=== PATIENT | female | born 1985 | race Two or more races ===

== ENCOUNTER 2020-02-12 14:25 | Outpatient (REF) | payer OTHER, SELFPAY ==
[2020-02-13 09:45] LABS: Syphilis Screen Reactive (Nonreactive)
[2020-02-13 10:00] LABS: HIV AB/AG Nonreactive (Nonreactive); HIV Num 1 0.07 S/CO (0.00-0.99); Hepatitis B Surface Antigen Negative (Negative)
[2020-02-13 11:38] LABS: CT PCR NOT DETECTED (Not Detect.); NG PCR NOT DETECTED (Not Detect.)
[2020-02-13 15:03] LABS: BV Int Neg Control Negative (Negative); BV Int Pos Control Positive (Positive)
[2020-02-17 15:04] LABS: RPR Quantitative Non-Reactive (Nonreactive)
[2020-02-27 12:50] LABS: T.Pallidum Particle Agg Test Reactive (Nonreactive)
== END 2020-02-12 14:26 | disposition home or self-care (01) ==
LOC: HO.LAB 14:25
PROVIDERS: PCP Internal Medicine; Referring Provider Internal Medicine; Visit Provider Obstetrics & Gynecology
DX: N89.8 Other specified noninflammatory disorders of vagina (principal); Z11.3 Encounter for screening for infections with a predominantly sexual mode of transmission
CPT/HCPCS: 86592; 86780; 87340; 87389; 87480; 87491; 87510; 87591; 87660; 99213

== ENCOUNTER 2020-04-24 08:00 | Outpatient (REF) | payer OTHER, SELFPAY ==
[2020-04-25 12:53] LABS: BV Int Neg Control Negative (Negative); BV Int Pos Control Positive (Positive)
[2020-04-27 08:12] LABS: C. trachomatis RNA TMA NOT DETECTED (NOT DETECTED); N. gonorrhoeae RNA TMA NOT DETECTED (NOT DETECTED)
== END 2020-04-24 08:01 | disposition home or self-care (01) ==
LOC: HO.LAB 08:00
PROVIDERS: PCP Internal Medicine Endocrinology, Diabetes & Metabolism; Visit Provider Advanced Practice Midwife
DX: N89.8 Other specified noninflammatory disorders of vagina (principal); Z20.2 Contact with and (suspected) exposure to infections with a predominantly sexual mode of transmission
CPT/HCPCS: 87480; 87491; 87510; 87591; 87660; 99212

== ENCOUNTER → 2020-05-12 11:54 | Outpatient (BNVA) | payer OTHER, SELFPAY | PROVIDERS: PCP Internal Medicine Endocrinology, Diabetes & Metabolism; Visit Provider Advanced Practice Midwife | DX: N76.0 Acute vaginitis (principal); B96.89 Other specified bacterial agents as the cause of diseases classified elsewhere; Z71.2 Person consulting for explanation of examination or test findings | CPT/HCPCS: 99212 ==

== ENCOUNTER → 2020-05-20 08:06 | Outpatient (BNVA) | payer OTHER, SELFPAY | PROVIDERS: PCP Internal Medicine; Visit Provider Advanced Practice Midwife ==

== ENCOUNTER 2020-12-17 07:52 | Emergency (ER) | payer OTHER, SELFPAY ==
[2020-12-17 07:57] VITALS: BP 101/46; PULSE 75; RESP 18; TEMP 36.9; O2SAT 98; BMI 25.4
--- NOTE | 2020-12-17 08:00 | ED.EAR ---
HPI - Ear Problem General Chief complaint: Ear Problems Stated complaint: hearing loss lt ear Time Seen by Provider: 12/17/20 08:00 Source: patient Mode of arrival: ambulatory Limitations: no limitations History of Present Illness HPI Narrative: 35-year-old female came in for evaluation of hearing loss in the left ear that is gradually getting worse, patient had a complete hearing loss since yesterday. No fever, no chills. Related Data Home Medications Medication Instructions Recorded Confirmed levothyroxine 125 mcg tablet 125 mcg PO DAILY 02/12/20 Previous Rx's Medication Instructions Recorded clindamycin HCl 300 mg capsule 300 mg PO BID 7 Days #14 cap 05/20/20 Allergies Allergy/AdvReac Type Severity Reaction Status Date / Time metronidazole [From FLAGYL] Allergy Severe SHORTNESS Verified 05/20/20 08:19 OF BREATH ibuprofen [From MOTRIN] Allergy Intermediate VOMITING Verified 05/20/20 08:19 Review of Systems Review of Systems: All other systems are reviewed and are negative Constitutional: Reports as per HPI and Reports no additional constitutional complaints Eyes: Reports as per HPI and Reports no additional eye complaints Reports system reviewed and no additional complaints, except as documented Cardiovascular: Reports as per HPI and Reports no additional cardiovascular complaints Respiratory: Reports as per HPI and Reports no additional respiratory complaints Gastrointestinal: Reports as per HPI and Reports no additional gastrointestinal complaints Genitourinary: Reports no additional female genitourinary complaints Musculoskeletal: Reports no additional musculoskeletal complaints Skin/Breast: Reports system reviewed and no additional complaints, except as docu Psychiatric: Reports no additional psychiatric complaints Endocrine: Reports no additional endocrine complaints Hematologic/Lymphatic: Reports no additional hematologic/lymphatic complaints Allergic/Immunologic: Reports no additional allergic/immunologic complaints Reports system reviewed and no additional complaints, except as documented and Reports Abnormal speech present [facility] Past Medical History Medical History History of Graves' disease Hx of thyroid irradiation Family History Family History Paternal Grandmother Diabetes Social History Social History Alcohol intake: never Advance Directives: Yes Advance Directives Information Provided: Yes Advance Directives on File: No Patient : No Sexual orientation: Straight/Heterosexual Gender identity: Female Physical Exam Vital Signs: Vital Signs: Last Vital Signs Temp 98.4 F 12/17/20 07:57 Pulse 75 12/17/20 07:57 Resp 18 12/17/20 07:57 BP 101/46 L 12/17/20 07:57 Pulse Ox 98 12/17/20 07:57 Body Mass Index 25.4 Vital signs have been reviewed as appeared to be correct. Blood pressure normal. Heart rate normal. Respiration rate normal. Temperature normal. Oxygen saturation normal. Appearance: Alert. Oriented X3. No acute distress. Head: Normal external exam. Normocephalic. Atraumatic. No Serrano signs noted. No raccoon eyes noted Eyes: PERRLA. EOMI. Conjunctiva and sclera normal. Eyelids normal. ENT: TM's Normal on the right side, complete blockage of the auditory canal with cerumen, Pharynx normal. Uvula midline. Moist mucous membranes. No trismus noted. No drooling noted. No muffled voice noted. Neck: Normal inspection. Neck supple. FROM. No adenopathy. Thyroid Normal. No meningeal signs. No neck mass noted. CVS: Normal heart rate and rhythm. Heart sound normal. No murmurs noted. Pulses normal throughout. Respiratory: No respiratory distress. Painless inspiration. Breath sounds normal. No wheezes/rales/rhonchi noted. Chest nontender. No accessory muscle usage noted or decreased air movement noted. Abdomen: Soft and nontender. Bowel sounds normal in all 4 quadrants. No distention noted. No organomegaly noted. No visible injury noted. Back: No CVA tenderness. Full range of motion noted. Skin: Skin warm and dry. Normal skin color. Normal skin turgor. No rashes/lesions/lacerations noted. Extremities: No lower extremity edema. Extremities exhibit normal range of motion. Extremities nontender. Neuro: Oriented X 3. Cranial nerve exam: II-XII are grossly intact No motor deficit. No sensory deficit. Reflexes normal. Course Course Course Narrative: Assessment and plan. Cerumen impaction, status post disimpaction, patient now can hear better. Procedures Ear Wax Removal Left Ear: Cerumenolytic Used: other (ns) Results: Re-examined: cerumen removed completely TM Examination: TM(s) intact, normal appearance Ear Canal Exam: atraumatic Patient Tolerated Procedure: well Complications: no problems Technique: ear canal irrigated Discharge Plan Discharge Clinical Impression: Cerumen impaction Qualifiers: Laterality: left Qualified Code(s): H61.22 - Impacted cerumen, left ear Patient Disposition: Home, Self-Care Prescriptions: No Action clindamycin HCl 300 mg capsule 300 mg PO BID 7 Days Qty: 14 RF: 0 levothyroxine 125 mcg tablet 125 mcg PO DAILY RF: 0 Referrals: Akhil Ortiz MD [Primary Care Provider] - 2 days
[2020-12-17 08:20] VITALS: BP 102/61
== END 2020-12-17 08:27 | disposition home or self-care (01) ==
LOC: HO.ED 08:07
PROVIDERS: Emergency Provider Emergency Medicine; PCP Internal Medicine
DX: H61.22 Impacted cerumen, left ear (principal); H92.02 Otalgia, left ear; Z79.899 Other long term (current) drug therapy
CPT/HCPCS: 69209; 99282; 99284; 99285

== ENCOUNTER 2021-02-18 13:27 | Outpatient (REF) | payer OTHER, SELFPAY ==
[2021-02-19 01:18] LABS: CT PCR NOT DETECTED (Not Detect.); NG PCR NOT DETECTED (Not Detect.)
[2021-02-19 09:30] LABS: BV Int Neg Control Negative (Negative); BV Int Pos Control Positive (Positive)
[2021-02-20 15:01] LABS: HPV mRNA E6/E7 rflx Not Detected (Not Detected)
== END 2021-02-18 13:28 | disposition home or self-care (01) ==
LOC: HO.LAB 13:27
PROVIDERS: PCP Internal Medicine; Visit Provider Advanced Practice Midwife
DX: Z01.419 Encounter for gynecological examination (general) (routine) without abnormal findings (principal); Z11.51 Encounter for screening for human papillomavirus (HPV); Z11.3 Encounter for screening for infections with a predominantly sexual mode of transmission; R10.2 Pelvic and perineal pain; N89.8 Other specified noninflammatory disorders of vagina; Z20.2 Contact with and (suspected) exposure to infections with a predominantly sexual mode of transmission
CPT/HCPCS: 87480; 87491; 87510; 87591; 87624; 87660; 88142

== ENCOUNTER 2021-09-23 13:33 | Outpatient (REF) | payer OTHER, SELFPAY ==
[2021-09-23 17:07] LABS: CT PCR NOT DETECTED (Not Detect.); NG PCR NOT DETECTED (Not Detect.)
[2021-09-24 11:03] LABS: BV Int Neg Control Negative (Negative); BV Int Pos Control Positive (Positive)
== END 2021-09-23 13:34 | disposition home or self-care (01) ==
LOC: HO.LAB 13:33
PROVIDERS: Visit Provider Advanced Practice Midwife
DX: N89.8 Other specified noninflammatory disorders of vagina (principal); Z20.2 Contact with and (suspected) exposure to infections with a predominantly sexual mode of transmission
CPT/HCPCS: 87480; 87491; 87510; 87591; 87660; 99212

== ENCOUNTER 2021-11-25 10:48 | Outpatient (REF) | payer OTHER, SELFPAY ==
[2021-11-25 19:47] LABS: CT PCR NOT DETECTED (Not Detect.); NG PCR NOT DETECTED (Not Detect.)
[2021-11-26 09:20] LABS: BV Int Neg Control Negative (Negative); BV Int Pos Control Positive (Positive)
== END 2021-11-25 10:49 | disposition home or self-care (01) ==
LOC: HO.LAB 10:48
PROVIDERS: Visit Provider Advanced Practice Midwife
DX: O03.9 Complete or unspecified spontaneous abortion without complication (principal); N89.8 Other specified noninflammatory disorders of vagina; Z20.2 Contact with and (suspected) exposure to infections with a predominantly sexual mode of transmission
CPT/HCPCS: 81025; 87086; 87480; 87491; 87510; 87591; 87660; 99212

== ENCOUNTER 2021-11-26 11:06 | Outpatient (REF) | payer OTHER, SELFPAY ==
--- NOTE | ~2021-11-26 | US_ITS ---
EXAMINATION: US PELVIS CLINICAL INFORMATION: Right-sided pelvic pain for 2 weeks. COMPARISON: Pelvic ultrasound from 06/26/2016 TECHNIQUE: Ultrasound of the pelvis is performed using a transabdominal transducer. The patient declined transvaginal evaluation. FINDINGS: UTERUS AND CERVIX The anteflexed, anteverted uterus measures 8.9 x 3.8 x 5 cm ([id number] x AP x transverse dimension). The myometrial echotexture is normal. No evidence of leiomyoma. The cervix is approximately 3 cm in length. The endometrium has normal echotexture, measures 1 cm AP. ADNEXA: The ovaries have normal size and echotexture. No adnexal mass. The right ovary is 2 x 1.8 x 2.4 cm, volume of 4.5 mL. The left ovary is 2.4 x 3.2 x 2.1 cm, volume of 8.4 mL. FREE FLUID: None detected. US/US pelvic complete IMPRESSION: Normal ultrasound examination of the uterus and ovaries. No evidence of ovarian mass or pelvic free fluid.
== END 2021-11-26 11:07 | disposition home or self-care (01) ==
LOC: HO.US 11:06
PROVIDERS: Visit Provider Advanced Practice Midwife
DX: O03.9 Complete or unspecified spontaneous abortion without complication (principal)
CPT/HCPCS: 76856

== ENCOUNTER 2022-08-31 09:23 | Outpatient (REF) | payer OTHER, SELFPAY ==
[2022-08-31 12:59] LABS: HCG Quantitative < 2 mIU/mL
[2022-08-31 14:50] LABS: CT PCR NOT DETECTED (Not Detect.); NG PCR DETECTED (Not Detect.)
[2022-09-01 04:26] LABS: Syphilis Screen Reactive (Nonreactive)
[2022-09-01 04:31] LABS: HBsAGNum1 0.28 S/CO (0.00-0.99); HIV AB/AG Nonreactive (Nonreactive); HIV Num 1 0.05 S/CO (0.00-0.99); Hepatitis B Surface Antigen Negative (Negative); ~HepC Num1 0.11 S/CO (0.00-0.79); ~Hepatitis C Antibody Nonreactive (Nonreactive)
[2022-09-01 12:35] LABS: BV Int Neg Control Negative (Negative)
[2022-09-01 12:36] LABS: BV Int Pos Control Positive (Positive)
[2022-09-06 15:22] LABS: T.Pallidum Particle Agg Test Reactive (Nonreactive)
[2022-09-06 15:23] LABS: RPR Quantitative Non-Reactive (Nonreactive)
== END 2022-08-31 09:24 | disposition home or self-care (01) ==
LOC: HO.LAB 09:23
PROVIDERS: PCP Internal Medicine; Visit Provider Advanced Practice Midwife
DX: Z11.4 Encounter for screening for human immunodeficiency virus [HIV] (principal); Z20.2 Contact with and (suspected) exposure to infections with a predominantly sexual mode of transmission; N89.8 Other specified noninflammatory disorders of vagina; N94.9 Unspecified condition associated with female genital organs and menstrual cycle
CPT/HCPCS: 0353U; 36415; 84702; 86592; 86780; 86803; 87086; 87340; 87389; 87480; 87510; 87660; 99212

== ENCOUNTER 2022-08-31 10:47 | Outpatient (REF) | payer OTHER, SELFPAY ==
[2022-09-01 23:33] LABS: HPV mRNA E6/E7 rflx Not Detected (Not Detected)
== END 2022-08-31 10:48 | disposition home or self-care (01) ==
LOC: HO.LNP 10:47
PROVIDERS: Visit Provider Advanced Practice Midwife
DX: Z12.4 Encounter for screening for malignant neoplasm of cervix (principal); Z11.51 Encounter for screening for human papillomavirus (HPV); N89.8 Other specified noninflammatory disorders of vagina; Z87.42 Personal history of other diseases of the female genital tract
CPT/HCPCS: 87624; 88142

== ENCOUNTER → 2022-09-01 12:38 | Outpatient (BNVA) | payer OTHER, SELFPAY | PROVIDERS: PCP Internal Medicine; Visit Provider Advanced Practice Midwife | DX: A54.9 Gonococcal infection, unspecified (principal) | CPT/HCPCS: 96372; 99211; J0696 ==

== ENCOUNTER 2022-09-11 22:28 | Emergency (ER) | payer OTHER, SELFPAY ==
[2022-09-11 22:34] VITALS: BP 116/65; PULSE 104; RESP 18; TEMP 36.3; O2SAT 96; BMI 26.4
[2022-09-11 23:02] LABS: Basophils Absolute Auto 0.1 X10*3/uL (0.0-0.2); Basophils Percent Auto 0.5 % (0-2); Eosinophils Absolute Auto 0.1 X10*3/uL (0.0-0.4); Eosinophils Percent Auto 0.4 % (0-4); Hematocrit 38.5 % (37.0-47.0); Hemoglobin 13.1 g/dl (12.0-16.0); Imm Gran Abs Auto 0.08 X10*3/uL (0.00-0.03); Imm Gran Pct Auto 0.5 % (0.0-0.4); Lymphocytes Absolute Auto 1.9 X10*3/uL (1.2-4.9); Lymphocytes Percent Auto 11.4 % (20-40); MANUAL DIFF FLAG NO; Mean Corpuscular Hemoglobin 28.1 pg (27.0-33.0); Mean Corpuscular Volume 82.4 fL (80.0-98.0); Mean Platelet Volume 9.9 fL (9.4-12.3); Monocytes Absolute Auto 0.6 X10*3/uL (0.1-1.2); Monocytes Percent Auto 3.8 % (2-11); Neutrophils Absolute Auto 13.9 x10*3/uL (2.0-8.3); Neutrophils Percent Auto 83.4 % (45-73); Platelet Count 316 X10*3/uL (160-400); Red Blood Count 4.67 X10*6/uL (4.20-5.50); Red Cell Distribution Width 13.2 % (11.0-16.0); White Blood Count 16.6 X10*3/uL (4.8-10.8)
[2022-09-11 23:14] LABS: Anion Gap 11 (12-20); Blood Urea Nitrogen 14 mg/dL (9-16); Calcium 9.7 mg/dL (8.4-10.2); Carbon Dioxide 25 mmol/L (22-29); Chloride 108 mmol/L (96-108); Creatinine Clr Calc Pharmacy 81.5; Estimated Glomerular Filt Rate > 60; Glucose Random 113 mg/dL (60-115); Potassium 4.2 mmol/L (3.3-5.1); Sodium 140 mmol/L (135-145)
--- NOTE | 2022-09-12 00:29 | PC.NURSE ---
Pt brought back from waiting room, pt is tearful on stretcher recounting to this RN what happened. Pt reports having consistent pain in joints as well as painful urination. Pt provided us with CTNG awaiting clean catch at this time
--- NOTE | 2022-09-12 00:30 | ED_ITS ---
HPI - General Adult General Chief complaint: General Medical Stated complaint: Joint pain Time Seen by Provider: 09/12/22 00:29 Source: patient, RN notes reviewed and old records reviewed Mode of arrival: ambulatory Limitations: no limitations History of Present Illness HPI narrative: 36-year-old female presents for evaluation after a gonorrhea exposure. Patient was initially seen by her OBGYN on 08/31/2022 for green vaginal discharge and pelvic discomfort She was ultimately tested positive for gonorrhea and bacterial vaginosis. She was treated with ceftriaxone injection the following day. She reports that she was also given clindamycin prescription as she has an allergy to metronidazole Patient reports that she was feeling better after a few days and will abstain from sexual intercourse for a week She reports that her boyfriend initially told her that he got himself treated as well The patient found out that her sexual partner ultimately never was treated for gonorrhea The patient reports continued pelvic discomfort, denies any vaginal discharge She also complains of bilateral hand cramps and left knee pain. Related Data Home Medications Medication Instructions Recorded Confirmed levothyroxine 125 mcg tablet 125 mcg PO DAILY 02/12/20 08/31/22 Previous Rx's Medication Instructions Recorded clindamycin phosphate 2 % vaginal 1 appful vaginal BEDTIME 7 days 09/01/22 cream #40 grams clindamycin HCl 300 mg capsule 300 mg PO BID #14 caps 09/06/22 Allergies Allergy/AdvReac Type Severity Reaction Status Date / Time metronidazole [From FLAGYL] Allergy Severe SHORTNESS Verified 09/11/22 22:34 OF BREATH ibuprofen [From MOTRIN] Allergy Intermediate VOMITING Verified 09/11/22 22:34 Review of Systems Constitutional: Constitutional: Reports body ache(s), Denies chills and Denies fever(s) Gastrointestinal: Gastrointestinal: Reports abdominal pain Genitourinary: Genitourinary: Denies dysuria, Reports pelvic pain and Denies vaginal discharge Musculoskeletal: Musculoskeletal: Reports arthralgias and Denies joint swelling PMFSH Past Medical History Medical History History of Graves' disease Hx of thyroid irradiation Family History Family History Paternal Grandmother Diabetes Social History Social History (Reviewed 08/31/22 @ 09:39 by TACO Stewart Alcohol intake: never Advance Directives: No Advance Directives Information Provided: No Sexual orientation: Straight/Heterosexual Gender identity: Female Physical Exam ED Vital Signs: Vital Signs - 24 hr 09/11/22 22:34 Temperature 97.3 F Pulse Rate 104 H Respiratory Rate 18 Blood Pressure 116/65 Pulse Oximetry 96 Oxygen Delivery Method Room Air BMI result Body Mass Index 26.4 Const General: healthy appearing, comfortable, no acute distress, alert and awake Nutritional Appearance: well nourished Orientation/consciousness: patient oriented x3 Eyes Eyelids: Yes eyelids normal Conjunctivae: conjunctivae normal Sclerae: sclerae normal Corneas: corneas normal Pupils: Equal, round and reactive pupils present EOM: EOMs intact bilaterally Resp Effort & Inspection: normal respiratory effort, able to speak in complete sentences and not labored GI Inspection: No distended Palpation (GI): Soft to palpation, not firm, nontender, no guarding and not rigid Auscultation: normoactive bowel sounds Skin General skin exam: no rashes or lesions noted and elasticity normal Neuro General: patient oriented x3 Cranial nerves: Yes Equal, round and reactive pupils present and Yes Bilaterally intact EOM present Cognition (Neuro): normal cognition Extrem Other: Moving all extremities well without any obvious deformities. No edema or rashes the hands bilaterally. Patient has full range of motion of the wrist and all fingers of the hands bilaterally. There is no effusions to the knees bilaterally. Medical Decision Making Medical Decision Making MDM Narrative: [age] in female presents for evaluation after gonorrhea exposure. Tend urine testing again. The patient will be treated with ceftriaxone given the known positive exposure. Given the patient has received 2 doses of ceftriaxone is currently taking clindamycin I opted not to treat for chlamydia, as the patient tested negative for that less than 2 weeks ago and has only been with the same partner. I did not want to the patient additional antibiotics that she may not need. I discussed this with the patient and she agrees with the plan. A for chlamydia test is positive she understands that she will then require doxycycline treatment. The patient's joint pains are not consistent with disseminated gonorrhea. She has no joint effusions despite her knee pain. The patient has no evidence of sepsis. Her vital signs are stable. I did add on Lyme testing. I was able to view the patient's outpatient records including her thorough sexually transmitted infection tests. Will not repeat all this testing Differential Diagnosis Gonorrhea exposure Chlamydia exposure Disseminated gonorrhea STI UTI Lab Data 09/11/22 22:55 09/11/22 22:55 Labs: Lab Results 09/11/22 09/11/22 Range/Units 22:55 22:55 WBC 16.6 H (4.8-10.8) X10*3/uL RBC 4.67 (4.20-5.50) X10*6/uL Hgb 13.1 (12.0-16.0) g/dl Hct 38.5 (37.0-47.0) % MCV 82.4 (80.0-98.0) fL MCH 28.1 (27.0-33.0) pg MCHC 34.0 (31.0-35.0) g/dl RDW 13.2 (11.0-16.0) % Plt Count 316 (160-400) X10*3/uL MPV 9.9 (9.4-12.3) fL Immature Gran % (Auto) 0.5 H (0.0-0.4) % Neut % (Auto) 83.4 H (45-73) % Lymph % (Auto) 11.4 L (20-40) % [place]comb % (Auto) 3.8 (2-11) % Eos % (Auto) 0.4 (0-4) % Baso % (Auto) 0.5 (0-2) % Lymph # (Auto) 1.9 (1.2-4.9) X10*3/uL [place]comb # (Auto) 0.6 (0.1-1.2) X10*3/uL Eos # (Auto) 0.1 (0.0-0.4) X10*3/uL Baso # (Auto) 0.1 (0.0-0.2) X10*3/uL Abs Immat Gran (auto) 0.08 H (0.00-0.03) X10*3/uL Absolute Neuts (auto) 13.9 H (2.0-8.3) x10*3/uL Absolute Nucleated RBC 0.000 (0.0-0.012) X10*3/uL Nucleated RBC % (auto) 0.0 (0.0-0.2) /100WBC Sodium 140 (135-145) mmol/L Potassium 4.2 (3.3-5.1) mmol/L Chloride 108 (96-108) mmol/L Carbon Dioxide 25 (22-29) mmol/L Anion Gap 11 L (12-20) BUN 14 (9-16) mg/dL Creatinine 0.83 (0.5-1.4) mg/dL Estim Creat Clear Calc 81.5 Estimated GFR > 60 Random Glucose 113 (60-115) mg/dL Calcium 9.7 (8.4-10.2) mg/dL Discharge Plan Discharge Clinical Impression: Exposure to gonorrhea Patient Disposition: Home, Self-Care Instructions: Gonorrhea (ED) Additional Instructions: Your treated for gonorrhea again with the intramuscular injection. We will call you if you test positive for gonorrhea, chlamydia We also tested you for Lyme disease given your joint aches and pains Follow-up with your primary doctor You should again abstain from sexual intercourse for 1 week Return for new or worsening symptoms Prescriptions: No Action clindamycin phosphate 2 % cream 1 appful vaginal BEDTIME 7 Days Qty: 40 2RF clindamycin HCl 300 mg capsule 300 mg PO BID Qty: 14 0RF levothyroxine 125 mcg tablet 125 mcg PO DAILY
[2022-09-12 00:56] LABS: Appearance Urine Clear; Color Urine Yellow; Glucose Urine UA Negative (Negative); Leukocyte Esterase Urine Negative (Negative); Nitrite Urine Negative (Negative); Specific Gravity - Urine <= 1.005 (1.005-1.025); Urine Blood Negative (Negative); Urine Ketones Negative (Negative); Urine Protein Negative (Neg-Trace)
[2022-09-12 01:00] LABS: Bacteria Urine None Seen (None Seen); Hyaline Casts Urine 0-2 /LPF (0-2); RBC Urine 0-2 /HPF (0-2); Squamous Epithelial Cell Urine 0-2 /HPF (0-2); WBC Urine 0-5 /HPF (0-5)
[2022-09-12] MEDS: cefTRIAXone sodium 500 MG, Lidocaine HCl 1 % MPF 1 ML IM (01:23)
[2022-09-12 09:05] LABS: CT PCR NOT DETECTED (Not Detect.); NG PCR NOT DETECTED (Not Detect.)
[2022-09-14 21:19] LABS: Lyme Abs Screen <0.90 index
== END 2022-09-12 01:31 | disposition home or self-care (01) ==
PROVIDERS: Physician Assistant; Emergency Provider Emergency Medicine; PCP Internal Medicine
DX: A54.02 Gonococcal vulvovaginitis, unspecified (principal); N89.8 Other specified noninflammatory disorders of vagina; R10.2 Pelvic and perineal pain; Z20.2 Contact with and (suspected) exposure to infections with a predominantly sexual mode of transmission; Z79.899 Other long term (current) drug therapy
CPT/HCPCS: 0353U; 36415; 80048; 81001; 85025; 86617; 86618; 96372; 99283; 99284; J0696

== ENCOUNTER 2022-10-27 09:17 | Outpatient (REF) | payer OTHER, SELFPAY | END 2022-10-27 09:18 | disposition home or self-care (01) | LOC: HO.LNP 09:17 | PROVIDERS: PCP Internal Medicine; Visit Provider Advanced Practice Midwife | DX: A54.9 Gonococcal infection, unspecified (principal); Z30.09 Encounter for other general counseling and advice on contraception; Z87.42 Personal history of other diseases of the female genital tract; Z86.19 Personal history of other infectious and parasitic diseases; Z79.899 Other long term (current) drug therapy | CPT/HCPCS: 0353U; 87480; 87510; 87660; 99212 ==

== ENCOUNTER 2023-06-02 20:18 | Emergency (ER) | payer OTHER, SELFPAY ==
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
[2023-06-02 20:30] VITALS: BP 100/69; PULSE 74; RESP 16; O2SAT 98
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
[2023-06-02 20:49] LABS: MANUAL DIFF FLAG NO
[2023-06-02 20:50] LABS: Basophils Absolute Auto 0.1 X10*3/uL (0.0-0.2); Basophils Percent Auto 1.1 % (0-2); Eosinophils Absolute Auto 1.3 X10*3/uL (0.0-0.4); Eosinophils Percent Auto 11.4 % (0-4); Hematocrit 36.9 % (37.0-47.0); Hemoglobin 12.7 g/dl (12.0-16.0); Imm Gran Abs Auto 0.03 X10*3/uL (0.00-0.03); Imm Gran Pct Auto 0.3 % (0.0-0.4); Lymphocytes Absolute Auto 4.5 X10*3/uL (1.2-4.9); Lymphocytes Percent Auto 39.9 % (20-40); Mean Corpuscular HGB Conc 34.4 g/dl (31.0-35.0); Mean Corpuscular Hemoglobin 28.6 pg (27.0-33.0); Mean Corpuscular Volume 83.1 fL (80.0-98.0); Mean Platelet Volume 9.9 fL (9.4-12.3); Monocytes Absolute Auto 0.6 X10*3/uL (0.1-1.2); Monocytes Percent Auto 5.2 % (2-11); Neutrophils Absolute Auto 4.7 x10*3/uL (2.0-8.3); Neutrophils Percent Auto 42.1 % (45-73); Platelet Count 360 X10*3/uL (160-400); Red Blood Count 4.44 X10*6/uL (4.20-5.50); White Blood Count 11.2 X10*3/uL (4.8-10.8)
[2023-06-02 20:51] VITALS: BP 130/74; PULSE 70; O2SAT 99
[2023-06-02 20:52] VITALS: BP 110/76; PULSE 82; RESP 16; TEMP 36.6; O2SAT 100; BMI 25.5
[2023-06-02] MEDS: Ketorolac Tromethamine 30 MG/ML VIAL IVPUSH (21:01)
[2023-06-02] MEDS: Cyclobenzaprine HCl 10 MG TABLET PO (21:02)
--- OUTSIDE RECORDS SUMMARY | 2023-06-02 21:03 | XMS_ITS | Continuity of Care Document ---
Author Name Unknown Organization [facility] Address [address] [place] [id number] Care Team Providers Care Brood Hatchery Manager Name Role Phone Akhil Ortiz III, MD Primary Care Physician [phone] [place] [facility] [place] [address] [address]- [facility] Attending Physician: Not on Staff, Attending MD Referring Physician: Akhil Ortiz III, MD Allergies, Adverse Reactions, Alerts Substance Reaction Severity Status Flagyl Active Immunizations Given and Recorded Vaccine Date Status Refusal Reason tetanus/diphtheria/pertussis, acel(Tdap) 07/26/18 Given Tetanus-Diphth Toxoids, Adult (oldterm) 10/20/11 G iven Medications levothyroxine 0.088 mg oral tablet 1 tablet = 88 mcg, By Mouth, Daily, # 30 tablet, 0 Refills, Maintenance, 05/02/18 10:33:39 EST, Tablet Start Date: 05/02/18 Status: Ordered Problem List Condition Effective Dates Status Health Status Inform ant Former smoker(Confirmed) 1 Active GERD (gastroesophageal reflu x disease)(Confirmed) Active Graves disease(Confirmed) 2, 3 2018 Active History of varicella as a child(Confirmed) Active History of chlamydia infection(Confirmed) Active History of radiation exposure(Confirmed) 4 2016 Active History of Graves' disease(Confirmed) Active H/O Trichomonas infection(Confirmed) Active H/O Anxiety and depression(C onfirmed) 5 Active Normal vaginal Papanicolaou smear(Confirmed) 6 2008 Active 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 3Managed by PCP at [facility]. Pt currently on Levothyroxine 88mcg daily. 4due to Graves dx - 2016 5Pt reports receiving mental health services for depression and anxiety in childhood. 6Pt reports hx of abnormal paps - Last pap was NEG performed in 2008 Social History Social History Type Response Smoking Status Former smoker, quit more than 30 days ago; Tobacco user in household: No entered on: 03/14/18 Sex
--- OUTSIDE RECORDS SUMMARY | 2023-06-02 21:03 | XMS_ITS | Continuity of Care Document ---
Author Name Unknown Organization [facility] Address [address] [place] [id number] Care Team Providers Care Track Hoe Operator Name Role Phone Angel MUÑIZ MD, Akhil Cali Primary Care Physician Encounter [facility] [place] Date(s): 05/25/19 - 06/04/19 [facility] [address] [address]- [facility] Attending Physician: Arlet Jhaveri Admitting Physician: Arlet Jhaveri Referring Physician: AdmArlet mohr Allergies, Adverse Reactions, Alerts Substance Reaction Severity [...] per pt's hx. 3Managed by PCP at [place]. Pt currently on Levothyroxine 88mcg daily. 4due [...]
[2023-06-02 21:08] LABS: Alanine Aminotransferase 18 U/L (0-31); Albumin Level 4.4 g/dL (3.5-5.0); Alkaline Phosphatase 62 U/L (39-117); Anion Gap 15 (12-20); Aspartate Amino Transferase 18 U/L (5-31); Bilirubin Total 0.3 mg/dL (0.0-1.0); Blood Urea Nitrogen 13 mg/dL (9-16); Calcium 9.8 mg/dL (8.4-10.2); Carbon Dioxide 24 mmol/L (22-29); Chloride 105 mmol/L (96-108); Creatinine Clr Calc Pharmacy 84.5; Estimated Glomerular Filt Rate > 60; Glucose Random 116 mg/dL (60-115); Potassium 3.6 mmol/L (3.3-5.1); Sodium 140 mmol/L (135-145); Total Protein 7.1 g/dL (6.5-8.0)
== END 2023-06-02 22:29 | disposition home or self-care (01) ==
PROVIDERS: Emergency Provider Internal Medicine; PCP Internal Medicine
DX: S39.92XA Unspecified injury of lower back, initial encounter (principal); M54.2 Cervicalgia; R51.9 Headache, unspecified; R07.89 Other chest pain; V43.52XA Car driver injured in collision with other type car in traffic accident, initial encounter; Y93.9 Activity, unspecified; Y92.410 Unspecified street and highway as the place of occurrence of the external cause; Y99.8 Other external cause status; Z79.899 Other long term (current) drug therapy
CPT/HCPCS: 36415; 71046; 80053; 85025; 96374; 99284; J1885

== ENCOUNTER 2023-07-09 07:26 | Emergency (ER) | payer OTHER, SELFPAY ==
[2023-07-09 07:32] VITALS: BP 113/65; PULSE 98; RESP 16; TEMP 36.4; O2SAT 98; BMI 26.3
[2023-07-09 08:08] LABS: MANUAL DIFF FLAG NO
[2023-07-09 08:12] LABS: Basophils Absolute Auto 0.1 X10*3/uL (0.0-0.2); Basophils Percent Auto 0.8 % (0-2); Eosinophils Absolute Auto 0.7 X10*3/uL (0.0-0.4); Eosinophils Percent Auto 6.7 % (0-4); Hematocrit 40.1 % (37.0-47.0); Hemoglobin 13.8 g/dl (12.0-16.0); Imm Gran Abs Auto 0.05 X10*3/uL (0.00-0.03); Imm Gran Pct Auto 0.5 % (0.0-0.4); Lymphocytes Absolute Auto 2.7 X10*3/uL (1.2-4.9); Lymphocytes Percent Auto 25.7 % (20-40); Mean Corpuscular HGB Conc 34.4 g/dl (31.0-35.0); Mean Corpuscular Hemoglobin 28.2 pg (27.0-33.0); Monocytes Absolute Auto 0.7 X10*3/uL (0.1-1.2); Monocytes Percent Auto 6.2 % (2-11); Neutrophils Absolute Auto 6.3 x10*3/uL (2.0-8.3); Neutrophils Percent Auto 60.1 % (45-73); Platelet Count 314 X10*3/uL (160-400); Red Blood Count 4.89 X10*6/uL (4.20-5.50); Red Cell Distribution Width 13.2 % (11.0-16.0); White Blood Count 10.5 X10*3/uL (4.8-10.8)
[2023-07-09 08:26] LABS: Alanine Aminotransferase 14 U/L (0-31); Albumin Level 4.7 g/dL (3.5-5.0); Alkaline Phosphatase 65 U/L (39-117); Anion Gap 14 (12-20); Aspartate Amino Transferase 15 U/L (5-31); Bilirubin Total 0.6 mg/dL (0.0-1.0); Blood Urea Nitrogen 11 mg/dL (9-16); Calcium 9.6 mg/dL (8.4-10.2); Carbon Dioxide 22 mmol/L (22-29); Chloride 109 mmol/L (96-108); Creatinine Clr Calc Pharmacy 71.8; Estimated Glomerular Filt Rate > 60; Glucose Random 134 mg/dL (60-115); Potassium 3.8 mmol/L (3.3-5.1); Sodium 141 mmol/L (135-145); Total Protein 7.5 g/dL (6.5-8.0)
--- NOTE | 2023-07-09 08:37 | ED_ITS ---
HPI - Female Genitourinary General Chief complaint: Urogenital-Female Stated complaint: personal Time Seen by Provider: 07/09/23 07:47 Source: patient Mode of arrival: ambulatory Limitations: no limitations History of Present Illness HPI Narrative: 37-year-old female presenting to the ER with complaints of burning with urination, vaginal burning and jelly green/white colored foul vinegar smelling discharge for the past month. She endorses some lower back pain as well. She reports she did have unprotected sexual intercourse approximately 1 month ago with a man that she met on Facebook. She reports that they met up and were only supposed to smoke although they ended up having a 1 night stand. She has not spoken to him since then. She reports she has also been having some joint pain. Reports in the past she has similar symptoms and was diagnosed with gonorrhea. She reports she thought she might have had a yeast infection therefore she took the mono step for 1 day it did not work there should for she repeated it for another 3 days and she still felt like it did not work therefore she came here for further evaluation treatment. She would like to be treated for gonorrhea, chlamydia. She denies any fevers, chills, dizziness or headaches, abdominal pain, nausea vomiting, diarrhea constipation, rashes, lesions the vaginal area or any other symptoms complaints or concerns MD elicited complaint: dysuria, vaginal discharge, possible STD and back pain Pertinent past history: STI/STD Onset (ago): month(s) (1) Location of symptoms: external genitalia, urethra, vaginal and low back Severity: mild Female Urogenital Radiation: Non-Radiating Quality of pain: aching Consistency: constant Vaginal discharge: white (/green thick malodorous) Vaginal bleeding: none Urinary symptoms: Dysuria, Urgency, Frequency and Foul Smelling Urine Exacerbating factors: none Relieving factors: none Associated symptoms: denies other symptoms Treatment prior to arrival: none Sexual activity: Yes and New Sexual Partners Patient : No Related Data Home Medications Medication Instructions Recorded Confirmed levothyroxine 125 mcg tablet 125 mcg PO DAILY 02/12/20 10/27/22 Previous Rx's Medication Instructions Recorded clindamycin phosphate 2 % vaginal 1 appful vaginal BEDTIME 7 days 10/29/22 cream #40 grams cyclobenzaprine 10 mg tablet 10 mg PO Q8H #20 tabs 02/08/24 tramadol 50 mg tablet 50 mg PO Q6H PRN pain #20 tabs 06/02/23 doxycycline monohydrate 100 mg 100 mg PO BID 10 days #20 tabs 07/09/23 tablet Allergies Allergy/AdvReac Type Severity Reaction Status Date / Time metronidazole [From FLAGYL] Allergy Severe SHORTNESS Verified 07/09/23 07:36 OF BREATH ibuprofen [From MOTRIN] AdvReac Intermediate VOMITING Verified 07/09/23 07:36 Review of Systems 2 Review of Systems: Constitutional : No Fever, No Chills ENT/Mouth : No sore throat, No Rhinorrhea Eyes: No Eye Pain, No Redness Cardiovascular : No Chest Pain, No SOB Respiratory : No Cough, No Sputum, No Wheezing Gastrointestinal : No Nausea, No Vomiting, No Diarrhea, No abdominal pain, Genitourinary : No irregular bleeding, + Dysuria, + Urinary Frequency, + abnormal vaginal discharge, No pelvic pain Musculoskeletal : + Myalgias/back pain Skin : No rash Neuro : No Weakness, No Headache Psych : No Anxiety/Panic, No Depression Heme/Lymph: No bruising, No Lymphadenopathy Endocrine : No Polyuria, No Polydipsia Yes all other systems are reviewed and are negative [facility] Past Medical History Attestation statement: The following information was validated with the patient. Source: old records reviewed and nursing notes reviewed Medical History Hx of thyroid irradiation History of Graves' disease Family History Family History Paternal Grandmother Diabetes Social History Social History Alcohol intake: never Advance Directives: No Advance Directives Information Provided: No Patient : No Sexual orientation: Straight/Heterosexual Gender identity: Female Physical Exam 2 Vital Signs: Vital Signs: Last Vital Signs Temp 97.5 F 07/09/23 07:32 Pulse 98 07/09/23 07:32 Resp 16 07/09/23 07:32 BP 113/65 07/09/23 07:32 Pulse Ox 98 07/09/23 07:32 O2 Del Method Room Air 07/09/23 07:32 BMI result Body Mass Index 26.3 vital signs have been reviewed as normal and appeared to be correct. Blood pressure normal. Heart rate normal. Respiration rate normal. Temperature normal. Oxygen saturation normal. Appearance: Alert. Oriented X3. No acute distress. Head: Normal external exam. Normocephalic. Atraumatic. Eyes: PERRLA. EOMI. Conjunctiva and sclera normal. Eyelids normal. ENT: EAC normal. TM's Normal. Pharynx normal. Uvula midline. Moist mucous membranes. No trismus noted. No drooling noted. No muffled voice noted. Neck: Normal inspection. Neck supple. FROM. No meningeal signs. CVS: Normal heart rate and rhythm. Respiratory: No respiratory distress. Painless inspiration. . Abdomen: Soft and nontender. : Supervised by ABDULLAHI Madden. Normal external appearance of urethra. No lesions/lacerations or tenderness noted. Speculum exam normal appearance/palpation of vagina normal. Although patient is noted to have a white/yellow thick malodorous discharge. + vaginal erythema. No foreign bodies noted. No vaginal laceration/lesions or active bleeding noted. No tissue present in vagina. No vaginal mass noted. No vaginal swelling noted. No vaginal tenderness noted. Normal appearance of cervix. Normal palpation of cervix. Cervical os is closed. No cervical lesion/mass. No Bartholin cyst noted. No cervical motion tenderness noted. Negative chandelier sign. Normal bimanual exam. Uterine size normal. Bladder normal to palpation. Uterine consistency normal. Normal cervical palpation. Uterine mobility normal. Uterine shape normal. Normal adnexa. Normal rectovaginal exam. Back: No CVA tenderness. Full range of motion noted. Skin: Skin warm and dry. Normal skin color. Normal skin turgor. No rashes/lesions/lacerations noted. Extremities: No lower extremity edema. Extremities exhibit normal range of motion. Extremities nontender. Neuro: Oriented X 3. No motor deficit. No sensory deficit. Reflexes normal. Course Course Course Narrative: 37-year-old female presenting with dysuria, urinary frequency, urgency with abnormal vaginal discharge after she had unprotected intercourse with a new sexual partner approximately 1 month ago. Has tried [id number] yeast treatments with no relief. Has had a history of gonorrhea in the past with similar symptoms as today. Requesting to be treated for gonorrhea chlamydia and be tested for STIs. On exam she does have abnormal vaginal discharge without any vaginal bleeding or cervical motion tenderness or adnexal tenderness or enlargement. No rashes or lesions are noted. No CVA tenderness. Abdomen is soft and nontender. Patient most likely gonorrhea chlamydia. H and P not consistent with PID, , ectopic , tubular/ovarian abscess, sepsis. Will obtain labs, UA, gonorrhea chlamydia swabs along with bacterial vaginosis, Trichomonas and yeast swabs. Will prophylactically treat with 500 mg of IM Rocephin for gonorrhea, doxycycline 100 mg b.i.d. for 10 days for presumed chlamydia. She will have pending bacterial vaginosis, yeast and Trichomonas along with syphilis testing pending. She will be instructed to follow-up with her PCP and to return if any new or worsening symptoms. Patient understands agrees with this plan Reevaluation(s) Reevaluation #1: Patient positive for syphilis. Will treat at this time. Pending gonorrhea, chlamydia, HIV was also added. I discussed safe sex practices. Instructed patient to stay abstinent from any sexual intercourse until she completes treatment and to use a condom for future sexual intercourse. Along with instructions return if any new or worsening symptoms follow up with primary care provider/OBGYN. Patient understands agrees with this plan Time: 09:50 Medications Administered Discontinued Medications Generic Name Dose Route Start Last Admin Trade Name Freq PRN Reason Stop Dose Admin Ceftriaxone Sodium 500 mg/ 0 mg 07/09/23 08:36 07/09/23 09:37 Lidocaine HCl 1 ml IM 07/09/23 08:37 1 kit ONCE ONE Administration Medical Decision Making Medical Decision Making MDM Narrative: see course Differential Diagnosis Differential Diagnoses: The differential diagnosis associated with the presentation includes see course Lab Data [facility] Lab Attestation statement: I reviewed the patient's lab results. 07/09/23 08:03 07/09/23 08:03 Labs: Lab Results 07/09/23 07/09/23 Range/Units 08:03 08:56 WBC 10.5 (4.8-10.8) X10*3/uL RBC 4.89 (4.20-5.50) X10*6/uL Hgb 13.8 (12.0-16.0) g/dl Hct 40.1 (37.0-47.0) % MCV 82.0 (80.0-98.0) fL MCH 28.2 (27.0-33.0) pg MCHC 34.4 (31.0-35.0) g/dl RDW 13.2 (11.0-16.0) % Plt Count 314 (160-400) X10*3/uL MPV 10.0 (9.4-12.3) fL Immature Gran % (Auto) 0.5 H (0.0-0.4) % Neut % (Auto) 60.1 (45-73) % Lymph % (Auto) 25.7 (20-40) % Gilmer % (Auto) 6.2 (2-11) % Eos % (Auto) 6.7 H (0-4) % Baso % (Auto) 0.8 (0-2) % Lymph # (Auto) 2.7 (1.2-4.9) X10*3/uL [place]mer # (Auto) 0.7 (0.1-1.2) X10*3/uL Eos # (Auto) 0.7 H (0.0-0.4) X10*3/uL Baso # (Auto) 0.1 (0.0-0.2) X10*3/uL Abs Immat Gran (auto) 0.05 H (0.00-0.03) X10*3/uL Absolute Neuts (auto) 6.3 (2.0-8.3) x10*3/uL Absolute Nucleated RBC 0.000 (0.0-0.012) X10*3/uL Nucleated RBC % (auto) 0.0 (0.0-0.2) /100WBC Sodium 141 (135-145) mmol/L Potassium 3.8 (3.3-5.1) mmol/L Chloride 109 H (96-108) mmol/L Carbon Dioxide 22 (22-29) mmol/L Anion Gap 14 (12-20) BUN 11 (9-16) mg/dL Creatinine 0.93 (0.5-1.4) mg/dL Estim Creat Clear Calc 71.8 Estimated GFR > 60 Random Glucose 134 H (60-115) mg/dL Calcium 9.6 (8.4-10.2) mg/dL Total Bilirubin 0.6 (0.0-1.0) mg/dL AST 15 (5-31) U/L ALT 14 (0-31) U/L Alkaline Phosphatase 65 (39-117) U/L Total Protein 7.5 (6.5-8.0) g/dL Albumin 4.7 (3.5-5.0) g/dL Urine Color Dark Yellow Urine Appearance Clear Urine pH 5.5 (5.0-9.0) Ur Specific [place] 1.025 (1.005-1.025) Urine Protein Negative (Neg-Trace) mg/dL Urine Glucose (UA) Negative (Negative) mg/dL Urine Ketones Trace (Negative) mg/dL Urine Blood Negative (Negative) Urine Nitrite Negative (Negative) Ur Leukocyte Esterase Negative (Negative) Urine Test NEGATIVE (NEGATIVE) T.pallidum Ab (EIA) Reactive A (Nonreactive) Independent Historian Patient, medical records and nurse's no External Record Review External record reviewed: Inpatient record, Office record, Outpatient record, Prior outpatient labs, Prior outpatient radiology, Primary care record and Outside ED record All prior labs/imaging/EKG and notes that are accessible in our system reviewed by my Prescription Management I considered prescription management with: Antibiotic Social Determinants Patient?s care significantly limited by Social Determinants of Health including: Low income and Other Social Determinant of Health Discharge Plan Discharge Clinical Impression: Syphilis, Encounter for assessment of STD exposure Patient Disposition: Home, Self-Care Instructions: Sexually Transmitted Diseases (ED), Syphilis (ED) Additional Instructions: You have pending lab results if any are positive you will be contacted within the next 3-5 days. Stay abstinent from any sexual intercourse until you complete your antibiotic treatment doxycycline for 10 days. Return if any new or worsening symptoms. Follow up with her PCP and OBGYN. Please practice safe sex with condoms to avoid future transmitted diseases. Prescriptions: New doxycycline monohydrate 100 mg tablet 100 mg PO BID 10 Days Qty: 20 0RF No Action clindamycin phosphate 2 % cream 1 appful vaginal BEDTIME 7 Days Qty: 40 0RF cyclobenzaprine 10 mg tablet 10 mg PO Q8H Qty: 20 0RF tramadol 50 mg tablet 50 mg PO Q6H PRN (Reason: pain) Qty: 20 0RF levothyroxine 125 mcg tablet 125 mcg PO DAILY Referrals: Akhil Ortiz III, MD [Primary Care Provider] - 1 day Stand Alone Forms: Work/School Release
[2023-07-09 08:47] LABS: Syphilis Screen Reactive (Nonreactive)
[2023-07-09 09:06] LABS: Appearance Urine Clear; Color Urine Dark Yellow; Glucose Urine UA Negative (Negative); Leukocyte Esterase Urine Negative (Negative); Nitrite Urine Negative (Negative); PH 5.5 (5.0-9.0); Specific Gravity - Urine 1.025 (1.005-1.025); Urine Blood Negative (Negative); Urine Ketones Trace mg/dL (Negative); Urine Protein Negative (Neg-Trace)
[2023-07-09 09:10] LABS: UPreg QC Valid YES; Urine Pregnancy NEGATIVE (NEGATIVE)
[2023-07-09] MEDS: cefTRIAXone sodium 500 MG, Lidocaine HCl 1 % MPF 1 ML IM (09:37)
[2023-07-09] MEDS: Penicillin G Benzathine 2,400,000 UNIT/4 ML SYRINGE 2400000 UNIT IM (09:52)
[2023-07-09 10:13] LABS: HIV AB/AG Nonreactive (Nonreactive); HIV Num 1 0.05 S/CO (0.00-0.99)
[2023-07-09 10:16] VITALS: BP 118/65; PULSE 99; RESP 18; TEMP 36.2
[2023-07-09 12:53] LABS: CT PCR NOT DETECTED (Not Detect.); NG PCR NOT DETECTED (Not Detect.)
[2023-07-09 15:15] LABS: BV Int Neg Control Negative (Negative); BV Int Pos Control Positive (Positive)
[2023-07-15 16:18] LABS: RPR Quantitative Non-Reactive (Nonreactive); T.Pallidum Particle Agg Test Reactive (Nonreactive)
== END 2023-07-09 10:17 | disposition home or self-care (01) ==
PROVIDERS: Physician Assistant Medical; Emergency Provider Emergency Medicine; PCP Internal Medicine
DX: A53.9 Syphilis, unspecified (principal); Z20.2 Contact with and (suspected) exposure to infections with a predominantly sexual mode of transmission; M54.50 Low back pain, unspecified; M25.50 Pain in unspecified joint
CPT/HCPCS: 0353U; 36415; 80053; 81003; 81025; 85025; 86592; 86780; 87389; 87480; 87510; 87660; 96372; 99282; 99284; J0561; J0696

== ENCOUNTER 2023-09-06 06:54 | Emergency (ER) | payer OTHER, SELFPAY ==
--- NOTE | ~2023-09-06 | US_ITS ---
EXAMINATION: US ABDOMEN LIMITED CLINICAL INFORMATION: Right upper quadrant pain and tenderness. COMPARISON: None available. TECHNIQUE: Real-time imaging of the right upper quadrant abdominal viscera. FINDINGS: PANCREAS: Normal. LIVER: Normal. The liver is normal in size. The liver contour is normal. Parenchymal echogenicity is normal. No focal hepatic lesion. There is no intrahepatic biliary duct dilatation seen. GALLBLADDER: Normal. The gallbladder is physiologically distended without evidence of stones, sludge, polyps, wall thickening or pericholecystic fluid. Sonographic Muller sign is negative. COMMON BILE DUCT: Normal in caliber measuring 0.2 cm in diameter. RIGHT KIDNEY: Normal. No hydronephrosis. No renal calculi or focal parenchymal lesions. The kidney measures 10.4 cm in maximum dimension. FREE FLUID: None. US/US abdomen limited IMPRESSION: Unremarkable right upper quadrant ultrasound.
[2023-09-06 06:59] VITALS: BP 119/64; PULSE 79; RESP 20; TEMP 37.1; O2SAT 100; BMI 26.7
--- NOTE | 2023-09-06 07:23 | ED.ABDPAIN ---
HPI - Abdominal Pain General Chief Complaint: Abdominal Pain Stated Complaint: Stomach Pain Time Seen by Provider: 09/06/23 07:23 Source: patient Mode of arrival: ambulatory Limitations: no limitations History of Present Illness HPI narrative: 37 yo female with PMH significant for Graves' disease presents to the ED with complaints of abdominal discomfort. She describes this has occurred intermittently since March 2023, but has since worsened in the past few weeks. She states it feels as though something is moving around in her abdomen and gets stuck under her right ribcage. Describes it feeling like when she was and baby would kick under her ribs. It is worsened with movement or when standing, sitting, or laying for prolonged periods. She endorses loose and frequent stools in the past few weeks. She states she has about 4-5 stools a day. They are loose or very thin and flat little pieces. Denies blood in stool. Describes associated nausea after eating, but no vomiting. She had noticed weight loss with decreased appetite. Abdominal bloating and discomfort after eating. Yesterday she felt nauseous and lightheaded, prompting her to come to ED today. She reports no previous abdominal surgeries. She states she is not sexually active and her last menstrual period was 08/14. She has been trying to get GI specialty appointment since discussion with PCP in March, but has not yet received an appointment. MD elicited complaint: abdominal pain Pertinent past history: none Onset (ago): month(s) Location: epigastric and RUQ Radiation: none Exacerbating factors: eating, movement and other (Positional) Associated symptoms: nausea and diarrhea Related Data Date of Last Menstrual Period: 08/15/23 Home Medications ?Medication ?Instructions ?Recorded ?Confirmed levothyroxine 125 mcg tablet 125 mcg PO DAILY 02/12/20 10/27/22 Previous Rx's ?Medication ?Instructions ?Recorded clindamycin phosphate 2 % vaginal 1 appful vaginal BEDTIME 7 days 10/29/22 cream #40 grams cyclobenzaprine 10 mg tablet 10 mg PO Q8H #20 tabs 06/02/23 tramadol 50 mg tablet 50 mg PO Q6H PRN pain #20 tabs 06/02/23 doxycycline monohydrate 100 mg 100 mg PO BID 10 days #20 tabs 07/09/23 tablet ondansetron 4 mg disintegrating 4 mg PO Q8H PRN nausea and 09/06/23 tablet vomiting #7 tabs Allergies Allergy/AdvReac Type Severity Reaction Status Date / Time metronidazole [From FLAGYL] Allergy Severe SHORTNESS Verified 09/06/23 07:04 OF BREATH ibuprofen [From MOTRIN] AdvReac Intermediate VOMITING Verified 09/06/23 07:04 Review of Systems Review of Systems Yes all other systems are reviewed and are negative [facility] Past Medical History Medical History Hx of thyroid irradiation History of Graves' disease Date of Last Menstrual Period: 08/15/23 Family History Family History Paternal Grandmother Diabetes Social History Social History Alcohol intake: never Smoked in Last 30 Days: No Use of substances other than those prescribed or required for medical reasons: Yes Substance Use Type: Marijuana Advance Directives: No Do you have a plan to hurt others: No Plan Sexual orientation: Straight/Heterosexual Gender identity: Female Physical Exam ED Vital Signs: Vital Signs - 24 hr 09/06/23 06:59 09/06/23 07:25 09/06/23 10:46 Temperature 98.7 F 98.5 F 98.9 F Pulse Rate 79 76 74 Respiratory Rate 20 18 16 Blood Pressure 119/64 108/42 L 107/51 L Pulse Oximetry 100 99 99 Oxygen Delivery Method Room Air Room Air Room Air 09/06/23 10:46 Temperature 98.9 F Pulse Rate 74 Respiratory Rate 16 Blood Pressure 107/51 L Pulse Oximetry 99 Oxygen Delivery Method Room Air BMI result Body Mass Index 26.7 Appearance: Alert. Oriented X3. No acute distress. Head: normocephalic, atraumatic. Eyes: Pupils equal, round and reactive to light. ENT: Pharynx normal. Neck: Normal inspection. Neck supple. CVS: Normal heart rate and rhythm. Pulses normal. Respiratory: No respiratory distress. Abdomen: Discomfort to palpation in RUQ and epigastric region. Mild distention. +BS x4 Skin: Skin warm and dry. Normal skin color. Normal skin turgor. No rashes. Extremities: No lower extremity edema. No joint swelling. Neuro/psych: Oriented X 3. No motor deficit. No sensory deficit. Normal speech and cognition. Medical Decision Making Medical Decision Making [facility] Narrative: 37 yo female with PMH significant for Graves' disease presents to the ED for evaluation of abdominal discomfort since March 2023. U/S of the right upper quadrant was unremarkable. Negative Muller sign. LFTs and lipase are normal. She has no CVA tenderness on examination. Her abdomen is soft with some mild tenderness to deep palpation of right upper quadrant. This is nonspecific. In the ER she was given a dose of IV Zofran and is tolerating oral fluids. At this time comfortable discharge home with outpatient follow-up with GI. Advised to start a food diary to see if there is any association with her abdominal pain and certain foods. Stable for discharge home Differential Diagnosis Differential Diagnoses: The differential diagnosis associated with the presentation includes Cholecystitis, cholelithiasis, cholangitis, biliary colic, gastritis, , pancreatitis, constipation, irritable bowel syndrome, inflammatory bowel Admission/Observation Consideration of admission/observation: Escalation of care including admission/observation considered Lab Data [facility] Lab Attestation statement: I reviewed the patient's lab results. Mild anemia, normal liver functions, normal lipase. Normal renal function. 09/06/23 07:57 09/06/23 07:57 Labs: Lab Results 09/06/23 09/06/23 Range/Units 07:57 09:31 WBC 9.9 (4.8-10.8) X10*3/uL RBC 4.36 (4.20-5.50) X10*6/uL Hgb 12.3 (12.0-16.0) g/dl Hct 35.6 L (37.0-47.0) % MCV 81.7 (80.0-98.0) fL MCH 28.2 (27.0-33.0) pg MCHC 34.6 (31.0-35.0) g/dl RDW 13.2 (11.0-16.0) % Plt Count 274 (160-400) X10*3/uL MPV 10.0 (9.4-12.3) fL Absolute Nucleated RBC 0.000 (0.0-0.012) X10*3/uL Nucleated RBC % (auto) 0.0 (0.0-0.2) /100WBC Sodium 139 (135-145) mmol/L Potassium 3.7 (3.3-5.1) mmol/L Chloride 108 (96-108) mmol/L Carbon Dioxide 22 (22-29) mmol/L Anion Gap 13 (12-20) BUN 11 (9-16) mg/dL Creatinine 0.78 (0.5-1.4) mg/dL Estim Creat Clear Calc 86.4 Estimated GFR > 60 Random Glucose 96 (60-115) mg/dL Calcium 9.1 (8.4-10.2) mg/dL Total Bilirubin 0.3 (0.0-1.0) mg/dL AST 13 (5-31) U/L ALT 9 (0-31) U/L Alkaline Phosphatase 49 (39-117) U/L Total Protein 6.6 (6.5-8.0) g/dL Albumin 4.1 (3.5-5.0) g/dL Lipase 42 (8-78) U/L Pregnenolone Cancelled Urine Color Yellow Urine Appearance Clear Urine pH 6.5 (5.0-9.0) Ur Specific [place] 1.010 (1.005-1.025) Urine Protein Negative (Neg-Trace) mg/dL Urine Glucose (UA) Negative (Negative) mg/dL Urine Ketones Negative (Negative) mg/dL Urine Blood Negative (Negative) Urine Nitrite Negative (Negative) Ur Leukocyte Esterase Negative (Negative) Urine Test NEGATIVE (NEGATIVE) Independent Interpretation I performed an independent interpretation of an: Ultrasound Interpretation: No gallstones seen, normal appearance of the CBD Radiology Impression Discussion of test interpretation with radiology: I have reviewed the radiologist's reading. Radiologist Impression: EXAMINATION: LEFT CLAVICLE, LEFT SHOULDER CLINICAL INFORMATION: Pain after injury COMPARISON: None available. TECHNIQUE: 2 views left clavicle, 3 views left shoulder FINDINGS: There is a comminuted fracture involving the mid clavicle with a middle fragment measuring 2.9 cm in length. This fragment is angled downwards and there is separation of the most proximal and distal fragments by about 2 cm. The acromioclavicular joint appears normal. The glenohumeral joint appears normal. The scapula and visualized humerus are unremarkable. No rib fractures are visualized. XR/XR shoulder LT min 2V IMPRESSION: Comminuted mid clavicular fracture as described above. External Record Review External record reviewed: Outpatient record, Prior outpatient labs and Prior outpatient radiology Prescription Management I considered prescription management with: Pain Medication Medications Administered Discontinued Medications Generic Name Dose Route Start Last Admin Trade Name Freq PRN Reason Stop Dose Admin Ondansetron HCl 4 mg 09/06/23 09:49 09/06/23 09:52 Ondansetron Hcl 4 Mg/2 Ml Vial IVPUSH 09/06/23 09:50 4 mg ONCE ONE Administration Critical Care Time Critical Care Time Critical Care Time: No Discharge Plan Discharge Clinical Impression: Abdominal pain Qualifiers: Abdominal location: unspecified location Qualified Code(s): R10.9 - Unspecified abdominal pain Patient Disposition: Home, Self-Care Instructions: Abdominal Pain (ED) Additional Instructions: Your lab workup and ultrasound today were unremarkable. Your urine test is negative for infection and . Recommend keeping a food diary to see if there is any association with your pain with specific food. Recommend following up with your doctor as well as a suit attendant for further evaluation and treatment. Call the GI office for an appointment. Name and number below. Take the prescribed nausea medication as needed. If you develop new or worsening symptoms call 911 or come back to the ER for further evaluation. Prescriptions: New ondansetron 4 mg tablet,disintegrating 4 mg PO Q8H PRN (Reason: nausea and vomiting) Qty: 7 0RF No Action clindamycin phosphate 2 % cream 1 appful vaginal BEDTIME 7 Days Qty: 40 0RF cyclobenzaprine 10 mg tablet 10 mg PO Q8H Qty: 20 0RF tramadol 50 mg tablet 50 mg PO Q6H PRN (Reason: pain) Qty: 20 0RF doxycycline monohydrate 100 mg tablet 100 mg PO BID 10 Days Qty: 20 0RF levothyroxine 125 mcg tablet 125 mcg PO DAILY Referrals: [facility] [place] [Provider Group] Akhil Ortiz III, MD [Primary Care Provider] - Interventions: ED Discharge Assessment Last Done: 09/06/23 10:46 Discharge Date/Time: 09/06/23 10:47 Print Language: Yi
[2023-09-06 07:25] VITALS: BP 108/42; PULSE 76; RESP 18; TEMP 36.9; O2SAT 99
--- NOTE | 2023-09-06 07:32 | PC.NURSE ---
Pt presents to ED from home, reports ABD pain in epigastric region since March worsening. Pt reports she feels a hard area in the RUQ region, hard for pt to describe. + nausea along with multiple loose stools a day. Denies any fevers, cough, abnormal bleeding, vomiting. Pt reports she told her PCP about this in March but has not had a follow-up. Pain is aching in epigastric region, 5/10, poor PO intake. Alert and oriented, breathing even and unlabored, skin warm and dry. ABD soft, but tender. VSS.
[2023-09-06 08:06] LABS: Hematocrit 35.6 % (37.0-47.0); Hemoglobin 12.3 g/dl (12.0-16.0); Mean Corpuscular HGB Conc 34.6 g/dl (31.0-35.0); Mean Corpuscular Hemoglobin 28.2 pg (27.0-33.0); Mean Corpuscular Volume 81.7 fL (80.0-98.0); Platelet Count 274 X10*3/uL (160-400); Red Blood Count 4.36 X10*6/uL (4.20-5.50); Red Cell Distribution Width 13.2 % (11.0-16.0); White Blood Count 9.9 X10*3/uL (4.8-10.8)
[2023-09-06 08:20] LABS: Alanine Aminotransferase 9 U/L (0-31); Albumin Level 4.1 g/dL (3.5-5.0); Alkaline Phosphatase 49 U/L (39-117); Anion Gap 13 (12-20); Aspartate Amino Transferase 13 U/L (5-31); Bilirubin Total 0.3 mg/dL (0.0-1.0); Blood Urea Nitrogen 11 mg/dL (9-16); Calcium 9.1 mg/dL (8.4-10.2); Carbon Dioxide 22 mmol/L (22-29); Chloride 108 mmol/L (96-108); Creatinine Clr Calc Pharmacy 86.4; Estimated Glomerular Filt Rate > 60; Glucose Random 96 mg/dL (60-115); Lipase 42 U/L (8-78); Potassium 3.7 mmol/L (3.3-5.1); Sodium 139 mmol/L (135-145); Total Protein 6.6 g/dL (6.5-8.0)
[2023-09-06 09:38] LABS: Appearance Urine Clear; Color Urine Yellow; Glucose Urine UA Negative (Negative); Leukocyte Esterase Urine Negative (Negative); Nitrite Urine Negative (Negative); PH 6.5 (5.0-9.0); Urine Blood Negative (Negative); Urine Ketones Negative (Negative); Urine Protein Negative (Neg-Trace)
[2023-09-06] MEDS: ondansetron HCL 4 MG/2 ML VIAL IVPUSH (09:52)
[2023-09-06 10:19] LABS: UPreg QC Valid YES; Urine Pregnancy NEGATIVE (NEGATIVE)
[2023-09-06 10:46] VITALS: BP 107/51; PULSE 74; RESP 16; TEMP 37.2; O2SAT 99
== END 2023-09-06 10:47 | disposition home or self-care (01) ==
PROVIDERS: Physician Assistant; Emergency Provider Emergency Medicine; PCP Internal Medicine
DX: R10.9 Unspecified abdominal pain (principal); R10.11 Right upper quadrant pain; E05.00 Thyrotoxicosis with diffuse goiter without thyrotoxic crisis or storm; F12.90 Cannabis use, unspecified, uncomplicated
CPT/HCPCS: 36415; 76705; 80053; 81003; 81025; 83690; 85027; 96374; 99284; J2405

== ENCOUNTER 2023-11-06 05:15 | Emergency (ER) | payer OTHER, SELFPAY ==
[2023-11-06 05:32] VITALS: BP 109/50; PULSE 72; RESP 16; TEMP 37; O2SAT 98; BMI 26.4
[2023-11-06 05:34] VITALS: BP 105/52; PULSE 68; RESP 14; TEMP 36.6; O2SAT 95
--- NOTE | 2023-11-06 06:38 | PC.NURSE ---
RN to bedside to answer call todd. pt found to be sitting upright in stretcher awake and alert without distress noted. She expressed her desires to leave and asked if there was anything to sign as she stated It's cold and it smells like piss in here, I just want to go home ,. RN attempted to make the pt aware that there are additional providers coming on that could see her but she declined. Pt was observed to have an even and steady gait as left the ER
[2023-11-06 09:11] LABS: CT PCR NOT DETECTED (Not Detect.); NG PCR NOT DETECTED (Not Detect.)
== END 2023-11-06 06:40 | disposition left against medical advice (07) ==
PROVIDERS: Emergency Provider Emergency Medicine; PCP Internal Medicine
DX: R30.0 Dysuria (principal); Z79.899 Other long term (current) drug therapy
CPT/HCPCS: 87491; 87591; 99281; 99284

== ENCOUNTER 2023-11-07 13:38 | Outpatient (REF) | payer OTHER, SELFPAY ==
[2023-11-07 18:05] LABS: Bacterial Vaginosis PCR POSITIVE (Negative); Candida Group PCR NOT DETECTED (Not Detect); Candida glab krusei PCR NOT DETECTED (Not Detect); Trichomonas vaginalis PCR NOT DETECTED (Not Detect)
[2023-11-07 18:39] LABS: CT PCR NOT DETECTED (Not Detect.); NG PCR NOT DETECTED (Not Detect.)
== END 2023-11-07 13:39 | disposition home or self-care (01) ==
LOC: HO.LNP 13:38
PROVIDERS: PCP Internal Medicine; Visit Provider Obstetrics & Gynecology
DX: N76.0 Acute vaginitis (principal); B96.89 Other specified bacterial agents as the cause of diseases classified elsewhere
CPT/HCPCS: 0352U; 87491; 87591; 99212

== ENCOUNTER 2023-11-07 13:38 | Outpatient (AMB) | payer OTHER, SELFPAY ==
[2023-11-07 13:52] VITALS: BMI 26.2
--- NOTE | 2023-11-07 13:52 | A.OFFVIS_ITS ---
Vital Signs 11/07/23 13:52 Height 5 ft 1 in Weight 138 lb 14.259 oz BMI 26.2 Intake Visit Reasons: vaginal discharge Certification Technician Required: No Information Interpreted: non-clinical & clinical Refractory Grinder Operator: Refractory Grinder Operator Present (Suzette OTT) Accompanied by: Self / Same As Patient Allergies metronidazole [From FLAGYL] Allergy (Severe, Verified 11/07/23 13:56) SHORTNESS OF BREATH ibuprofen [From MOTRIN] Adverse Reaction (Intermediate, Verified 11/07/23 13:56) VOMITING HPI Comments Details: The patient is presenting complaining of vaginal discharge associated with foul odor, no other associated symptoms, vaginal itching or any other complaint PFSH Medical History Hx of thyroid irradiation History of Graves' disease Family History Paternal Grandmother Diabetes Social History Alcohol intake: never Substance Use Type: Marijuana Sexual orientation: Straight/Heterosexual Gender identity: Female Female Reproductive History Menstrual Age of Menarche: 13 Review of Systems Const All systems reviewed & are unremarkable except as noted in HPI and below Physical Exam Vital Signs: BMI result Body Mass Index 26.2 General: Yes no CVA tenderness External Female Exam: normal external appearance and normal appearance of the urethra Speculum Exam - Vagina: normal appearance of the vagina, normal palpation, no lesions and no masses Speculum Exam - Cervix: normal appearance of the cervix, normal palpation, no lesions, no masses and nontender Bimanual exam- vagina & uterus: normal bimanual exam, normal palpation, uterine size normal, normal palpation, uterine shape normal, No Cervical tenderness present and non-tender Bimanual Exam- Adnexa, other: normal adnexae Back/Spine/Pelvis Back: no CVA tenderness Assessment & Plan Assessment & Plan (1) Bacterial vaginosis: Code(s): N76.0 - Acute vaginitis; B96.89 - Other specified bacterial agents as the cause of diseases classified elsewhere Category: Medical Plan: GC and chlamydia cultures with BV panel taken. Will treat with clindamycin cream 2% 1 5 g applicator intravaginally at bedtime for 7 days, Instructions given to the patient to refrain from sexual activity or to use condoms consistently and correctly during the BV treatment regimen, not to douch, it might increase the risk for relapse, and to call if symptoms persist or recur. Medications: New clindamycin phosphate 2% for 3 days 1 appful vaginal BEDTIME 7 days 40 grams 0RF Coding Level of Care Code Est Pt Level 3 (91875) Diagnoses Bacterial vaginosis N76.0; B96.89
== END 2023-11-07 15:46 | disposition home or self-care (01) ==
LOC: HO.HWS 13:38
PROVIDERS: PCP Internal Medicine; Visit Provider Obstetrics & Gynecology
DX: N76.0 Acute vaginitis (principal); B96.89 Other specified bacterial agents as the cause of diseases classified elsewhere
CPT/HCPCS: 99213

== ENCOUNTER 2024-01-03 13:51 | Outpatient (REF) | payer OTHER, SELFPAY ==
[2024-01-04 07:29] LABS: CT PCR DETECTED (Not Detect.); NG PCR NOT DETECTED (Not Detect.)
[2024-01-04 11:27] LABS: Bacterial Vaginosis PCR POSITIVE (Negative); Candida Group PCR DETECTED (Not Detect); Candida glab krusei PCR NOT DETECTED (Not Detect); Trichomonas vaginalis PCR NOT DETECTED (Not Detect)
== END 2024-01-03 13:52 | disposition home or self-care (01) ==
LOC: HO.LAB 13:51
PROVIDERS: PCP Internal Medicine; Visit Provider Advanced Practice Midwife
DX: N89.8 Other specified noninflammatory disorders of vagina (principal); Z20.2 Contact with and (suspected) exposure to infections with a predominantly sexual mode of transmission; N94.89 Other specified conditions associated with female genital organs and menstrual cycle; B37.31 Acute candidiasis of vulva and vagina; Z86.19 Personal history of other infectious and parasitic diseases
CPT/HCPCS: 0352U; 87491; 87591; 99212

== ENCOUNTER 2024-01-03 13:51 | Outpatient (AMB) | payer OTHER, SELFPAY ==
--- NOTE | 2024-01-03 14:14 | MHC.OFFVIS ---
Vital Signs 01/03/24 14:18 Height 5 ft 1 in Weight 137 lb BMI 25.9 BP 110/68 Intake Visit Reasons: vag burning Information Interpreted: clinical only Treatment Plant Mechanic: Treatment Plant Mechanic Present Allergies metronidazole [From FLAGYL] Allergy (Severe, Verified 01/03/24 14:19) SHORTNESS OF BREATH ibuprofen [From MOTRIN] Adverse Reaction (Intermediate, Verified 01/03/24 14:19) VOMITING Medication List - Last Reconciled 01/03/24 by Nanci Nice CNM levothyroxine 125 mcg PO DAILY Is last menstrual period known: Yes Last menstrual period: 12/15/23 HPI HPI vag burning: Details: Patient is here because she has vaginal burning. She had some vaginal itching as well it started Tuesday night Tuesday morning after she had had sex with her partner and she had intended to check the calendar but she had neglected and so also turns out that it was when she was ovulating. The main issue is however that she started with vaginal burning that has gotten worse in where she thought it might be a yeast infection she went to the pharmacy and got Monistat 1 and it [place] even more so then she had a conversation with her partner and confronted him about her symptoms and he admitted that he had had sex with somebody else twice without a condom. She just found this out and that is why she is here she wants to get checked she said it really really [place] and hurt she is not aware of any lesions. In reviewing her history she has a history of syphilis but it was in a previous years ago and the last time titers were done they had not gone off though the RPR still shows positive. [facility] Medical History Hx of thyroid irradiation History of Graves' disease Family History Paternal Grandmother Diabetes Social History Alcohol intake: never Substance Use Type: Marijuana Sexual orientation: Straight/Heterosexual Gender identity: Female Female Reproductive History Menstrual Age of Menarche: 13 Date of last menstrual period: 12/15/23 control method: none Total pregnancies: 7 Full term: 7 Physical Exam Vital Signs: Last Vital Signs BP 110/68 01/03/24 14:18 BMI result Body Mass Index 25.9 Other: External vulva dry and inflamed with curdy white discharge that could be the Monistat cream or could be yeast. The vagina itself is somewhat less drive but inflamed with curved curdy white discharge again that could be Monistat or yeast curds, cervix multiparous. No lesions seen. Assessment & Plan Assessment & Plan (1) Hx of syphilis: Comment: Was treated during her . Code(s): Z86.19 - Personal history of other infectious and parasitic diseases Category: Medical (2) Yeast infection of the vagina: Code(s): B37.31 - Acute candidiasis of vulva and vagina Category: Medical (3) Possible exposure to STD: Code(s): Z20.2 - Contact with and (suspected) exposure to infections with a predominantly sexual mode of transmission Category: Medical Plan Testing done for gonorrhea chlamydia trichomoniasis Sharon and Gardnerella it does appear that this is a severe yeast infection and it is also possible that the 1 day treatment of the miconazole was just simply too strong a concentration and is causing the burning as well. I recommend to the patient that she check herself with a mirror and if she sees lesions she should come back and we will do cultures to check for herpes. In the meantime I am ordering her Monistat 7 cream that she can use when she feels she can and Diflucan tablets to take 1 tablet now and 1 in 3 days if she is not feeling 100% better. I am also ordering her refills. I also called her number afterwards to offer her plan B but a gentleman answered the phone and when I asked to speak with her I was not connected to her and the call discontinued so I will send a prescription to her pharmacy but I have not been able to discuss it with her. I was just able to reach her on a another phone call attempt and she informed me that the ovulation with unprotected intercourse was last week. But I have already sent the prescription for her for future use. Orders: Orders CT NG by PCR Today N94.89 - Other specified conditions associated with female genital organs and menstrual cycle, Z20.2 - Contact with and (suspected) exposure to infections with a predominantly sexual mode of transmission Bacterial Vaginosis Panel Today N89.8 - Other specified noninflammatory disorders of vagina Medications: New levonorgestrel (Plan B One-Step) 1.5 mg PO ONCE 1 tab 4RF miconazole nitrate 2% (Miconazole-7) 1 appful vaginal BEDTIME 7 days 45 grams 3RF fluconazole may repeat second dose 72 hrs after first dose if symptoms persist 150 mg PO Q3D 2 doses 2 tabs 3RF Coding Level of Care Code Est Pt Level 3 (49850) Diagnoses Hx of syphilis Z86.19 Yeast infection of the vagina B37.31 Possible exposure to STD Z20.2
[2024-01-03 14:18] VITALS: BP 110/68; BMI 25.9
== END 2024-01-03 15:10 | disposition home or self-care (01) ==
PROVIDERS: PCP Internal Medicine; Visit Provider Advanced Practice Midwife
DX: Z86.19 Personal history of other infectious and parasitic diseases (principal); B37.31 Acute candidiasis of vulva and vagina; Z20.2 Contact with and (suspected) exposure to infections with a predominantly sexual mode of transmission
CPT/HCPCS: 99213

== ENCOUNTER 2024-03-08 09:47 | Outpatient (AMB) | payer OTHER, SELFPAY ==
[2024-03-08 09:53] VITALS: BP 118/78; BMI 26.1
--- NOTE | 2024-03-08 09:53 | MHC.OFFVIS ---
Vital Signs 03/08/24 09:53 Height 5 ft 1 in Weight 138 lb BMI 26.1 BP 118/78 Intake Visit Reasons: ERNESTINA Cloth Worker Required: No Information Interpreted: clinical only Cloth Picker: Cloth Picker Present Allergies metronidazole [From FLAGYL] Allergy (Severe, Verified 03/08/24 09:54) SHORTNESS OF BREATH ibuprofen [From MOTRIN] Adverse Reaction (Intermediate, Verified 03/08/24 09:54) VOMITING Medication List - Last Reconciled 03/08/24 by Nanci Nice CNM levothyroxine 125 mcg PO DAILY Is last menstrual period known: Yes Last menstrual period: 02/12/24 HPI HPI ERNESTINA: Details: Patient is here for test of cure for chlamydia she still is a little itchy but thinks it maybe very mild yeast she did take the medication for both the chlamydia and the yeast and the BV as well she clindamycin for the BV. She is still sexually active with her partner. They are not using protection he said he got to did but he said his test is negative in the [address] place she does not believe him but she is hoping that he at least did get treated and took medicine. Her last menstrual period is 10 20 she actually feels like she might be in that her breasts are tender she and her partner have talked and she is very clear that she would terminate the she does not like any control method and has a negative experiences with them all and is not interested we did have a discussion today about the possibility of the Nexplanon or the Mirena. At this point she is undecided but I did ask her to be more open to the possibility especially if it turns out that she is and has a termination to [facility]. Discussed timing of control to minimize bleeding side effects. She had Depo for 9 months when she was 15 when she was living in the [facility] foster home and she said she bled the whole time. She has heard horror stories of Mirena so she does not want that. She did a test at home yesterday and it was negative she thinks it is just too early it so she will wait another few days and if she does not get a period she will do a test and [facility] I told her that I had ordered blood work STI labs for her at the last visit and she get those done whenever she wishes she does have a history of syphilis so we will expect positive there. I reviewed with the patient the she has always been very attuned to her symptoms correctly. PFSH Medical History Hx of thyroid irradiation History of Graves' disease Family History Paternal Grandmother Diabetes Social History Alcohol intake: never Substance Use Type: Marijuana Sexual orientation: Straight/Heterosexual Gender identity: Female Female Reproductive History Menstrual Age of Menarche: 13 Duration of menses: 3-5 days Date of last menstrual period: 02/12/24 control method: none Physical Exam Vital Signs: Last Vital Signs BP 118/78 03/08/24 09:53 BMI result Body Mass Index 26.1 Other: Vagina and moist normal scant white discharge cervix is multiparous pink smooth nabothian cysts noted. External Female Exam: normal external appearance and normal appearance of the urethra Speculum Exam - Vagina: normal appearance of the vagina and normal vaginal discharge Speculum Exam - Cervix: normal appearance of the cervix and Cervical os closed Assessment & Plan Assessment & Plan (1) Possible exposure to STD: Code(s): Z20.2 - Contact with and (suspected) exposure to infections with a predominantly sexual mode of transmission Category: Medical (2) Yeast infection of the vagina: Code(s): B37.31 - Acute candidiasis of vulva and vagina Category: Medical (3) Hx of syphilis: Comment: Was treated during her . Code(s): Z86.19 - Personal history of other infectious and parasitic diseases Category: Medical (4) Chlamydia infection: Comment: Patient was treated she believes her partner to the medicine as well. test of cure 03/08/2024. Code(s): A74.9 - Chlamydial infection, unspecified Category: Medical Plan Patient is here for test of cure for chlamydia she still is a little itchy but thinks it maybe very mild yeast she did take the medication for both the chlamydia and the yeast and the BV as well she clindamycin for the BV. She is still sexually active with her partner. They are not using protection he said he got to did but he said his test is negative in the 1st place she does not believe him but she is hoping that he at least did get treated and took medicine. Her last menstrual period is 10 20 she actually feels like she might be in that her breasts are tender she and her partner have talked and she is very clear that she would terminate the she does not like any control method and has a negative experiences with them all and is not interested we did have a discussion today about the possibility of the Nexplanon or the Mirena. At this point she is undecided but I did ask her to be more open to the possibility especially if it turns out that she is and has a termination to [facility] a conversation [facility]. Discussed timing of control to minimize bleeding side effects. She had Depo for 9 months when she was 15 when she was living in the [facility] foster home and she said she bled the whole time. She has heard horror stories of Mirena so she does not want that. She did a test at home yesterday and it was negative she thinks it is just too early it so she will wait another few days and if she does not get a period she will do a test and [facility] I told her that I had ordered blood work STI labs for her at the last visit and she get those done whenever she wishes she does have a history of syphilis so we will expect positive there. I reviewed with the patient the she has always been very attuned to her symptoms correctly. Test of cure done today for gonorrhea chlamydia trichomoniasis says as well as the yeast and BV the discharge appears very today. Coding Level of Care Code Est Pt Level 3 (65721) Diagnoses Possible exposure to STD Z20.2 Yeast infection of the vagina B37.31 Hx of syphilis Z86.19 Chlamydia infection A74.9
== END 2024-03-08 11:02 | disposition home or self-care (01) ==
PROVIDERS: PCP Internal Medicine; Visit Provider Advanced Practice Midwife
DX: Z20.2 Contact with and (suspected) exposure to infections with a predominantly sexual mode of transmission (principal); B37.31 Acute candidiasis of vulva and vagina; Z86.19 Personal history of other infectious and parasitic diseases; A74.9 Chlamydial infection, unspecified
CPT/HCPCS: 99213

== ENCOUNTER 2024-03-08 09:47 | Outpatient (REF) | payer OTHER, SELFPAY ==
[2024-03-09 04:54] LABS: CT PCR NOT DETECTED (Not Detect.); NG PCR NOT DETECTED (Not Detect.)
[2024-03-09 09:48] LABS: Bacterial Vaginosis PCR NEGATIVE (Negative); Candida Group PCR NOT DETECTED (Not Detect); Candida glab krusei PCR NOT DETECTED (Not Detect); Trichomonas vaginalis PCR NOT DETECTED (Not Detect)
== END 2024-03-08 09:48 | disposition home or self-care (01) ==
LOC: HO.LAB 09:47
PROVIDERS: PCP Internal Medicine; Visit Provider Advanced Practice Midwife
DX: Z20.2 Contact with and (suspected) exposure to infections with a predominantly sexual mode of transmission (principal); N89.8 Other specified noninflammatory disorders of vagina; B37.31 Acute candidiasis of vulva and vagina; Z86.19 Personal history of other infectious and parasitic diseases; A74.9 Chlamydial infection, unspecified
CPT/HCPCS: 0352U; 87491; 87591; 99212